=== PATIENT | female | born 1955 | race Caucasian/White ===

== ENCOUNTER 2020-05-05 21:35 | Emergency (ER) | payer MEDICARE, MEDICAID ==
[~2020-05-05] VITALS: Ht 167.6 cm; Wt 127.0 kg
[2020-05-05] MEDS ORDERED: ACETAMINOPHEN 500MG TABLET PO ONE (23:45)
[2020-05-06 01:02] VITALS: BP 165/80
== END 2020-05-06 01:02 | disposition home or self-care (01) ==
LOC: ER 21:35
DX: K02.9 Dental caries, unspecified (principal); K05.6 Periodontal disease, unspecified; I10 Essential (primary) hypertension; E78.00 Pure hypercholesterolemia, unspecified; E03.9 Hypothyroidism, unspecified; Z98.890 Other specified postprocedural states; Z88.0 Allergy status to penicillin
CPT/HCPCS: 99283